=== PATIENT | male | born 1970 | race Caucasian/White ===

== ENCOUNTER 2017-10-07 02:35 | Emergency (ER) ==
[2017-10-07 02:51] VITALS: BP 141/96; TEMP 98.9; BMI 27.9
[2017-10-07] MEDS ORDERED: TORADOL IM STA (02:53)
--- NOTE | 2017-10-07 02:56 | ED.PDOC ---
General ED Provider: Dr. 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 Time Seen by Physician: 02:54 Mode of Arrival: Walk-In Information Source: Patient Nursing and Triage Documentation Reviewed and Agree: Yes Musculoskeletal Complaint Exam - Back Pain Complaint/Exam Mechanism of Injury: Reports: Trauma Symptoms Are: Still present Timing: Constant Episodes Lasting: Seconds Initial Severity: Moderate Current Severity: Moderate Location: Reports: Discrete Character: Reports: Aching, Throbbing Aggravating: Reports: Movements Alleviating: Reports: None Associated Signs and Symptoms: Denies: Swelling, Redness, Bruising, Fever, Weakness, Numbness, Tingling, Abdominal pain, Flank pain, Bladder incontinence, Bowel incontinence, Weight loss, Pain with weight bearing TAD Risk Factors: Reports: None AAA Risk Factors: Reports: None Cauda Equina Risk Factors: Reports: None Epidural Abcess Risk Factors: Reports: None Related Surgical History: Reports: None Focal Tenderness: Yes Paraspinal Muscle Tenderness: Yes Paraspinal Muscle Spasm: Yes Scoliosis: No Lordosis: No Kyphosis: No SLR Test: Right Positive, Left Negative Focal Weakness: Present: None Focal Sensory Loss: Present: None Gait: Present: Normal Differential Diagnoses: Fracture, Herniated Disk, Strain, Sprain Review of Systems - Review Of Systems Constitutional: Reports: No symptoms Eyes: Reports: No symptoms Ears, Nose, Mouth, Throat: Reports: No symptoms Respiratory: Reports: No symptoms Cardiac: Reports: No symptoms GI: Reports: No symptoms : Reports: No symptoms Musculoskeletal: Reports: Back pain, Joint pain Skin: Reports: No symptoms Neurological: Reports: No symptoms Endocrine: Reports: No symptoms Hematologic/Lymphatic: Reports: No symptoms All Other Systems: Reviewed and Negative Past Medical History - Past Medical History Previously Healthy: Yes Endocrine: Reports: None Cardiovascular: Reports: None Respiratory: Reports: None Hematological: Reports: None Gastrointestinal: Reports: None Genitourinary: Reports: None Neuro/Psych: Reports: None Musculoskeletal: Reports: None Cancer: Reports: None - Surgical History General Surgical History: Reports: None - Family History Family History: Reports: None - Social History Smoking Status: Current every day smoker, Heavy tobacco smoker Smoking Cessation Counseling Time: > 3 min - 10 min Hx Substance Use: Yes (IN THE PAST) Alcohol Screening: None - Immunizations Tetanus Shot up to Date: Yes Physical Exam - Physical Exam Appearance: Well-appearing Eyes: BAILEY, EOMI, Conjunctiva clear ENT: Ears normal, Nose normal, Oropharynx normal Respiratory: Airway patent, Breath sounds clear, Breath sounds equal, Respirations nonlabored Cardiovascular: RRR, Pulses normal, No rub, No murmur GI/: Soft, Nontender, No masses, Bowel sounds normal, No Organomegaly Musculoskeletal: Normal strength, ROM intact, No edema, No calf tenderness Skin: Warm, Dry, Normal color Neurological: Sensation intact, Motor intact, Reflexes intact, Cranial nerves intact, Alert, Oriented Psychiatric: Affect appropriate, Mood appropriate Critical Care Note - Critical Care Note Total Time (mins): 0 Course - Course Orders, Labs, Meds: Orders Category Date Time Status Ketorolac Tromethamine [Toradol] MEDS 10/07/17 02:53 Stat 30 mg IM ONCE STA CT LUMBAR SPINE W/O CONTRAST Stat RADS 10/07/17 02:53 Ordered Vital Signs: Temp Pulse Resp BP Pulse Ox 10/07/17 02:37 98.9 F 98 H 20 141/96 H 98 Departure - Departure Time of Disposition: 02:57 Disposition: HOME SELF-CARE Discharge Problem: Backache Instructions: Low Back Strain (GEN) Condition: Good Pt referred to PMD for follow-up: Yes Additional Instructions: Rest Hot pack F/u RHC in 3-4 days Prescriptions: Hydrocodone/Acetaminophen [[place] 5-325 Tablet] 1 tab PO TID PRN #12 tablet PRN Reason: PAIN Prednisone 10 mg PO BIDWM #14 tablet Allergies/Adverse Reactions: Allergies No Known Drug Allergies Adverse Reaction (Verified 10/07/17 02:47) Home Medications: Ambulatory Orders Hydrocodone/Acetaminophen [[place] 5-325 Tablet] 1 tab PO TID PRN #12 tablet 10/07 Prednisone 10 mg PO BIDWM #14 tablet 10/07/17 Disposition Discussed With: Patient
--- NOTE | 2017-10-07 03:33 | CT ---
Exam: CT lumbar spine without contrast HISTORY: Lower back pain TECHNIQUE: CT of the lumbar spine with multiplanar reformations. FINDINGS: Vertebral body height is maintained. Anterior degenerative listhesis of L4 measuring less than 4 mm. Normal alignment otherwise. No fracture lines or suspicious bony lesions. No immediate paravertebral soft tissue abnormalities. The sacrum is intact. L1-L2: Normal L2-L3: Normal L3-L4: Minor generalized disc bulge with mild anterior sac indentation. Mild bilateral foraminal na rrowing. Early facet arthropathy changes. L4-L5: Anterior degenerative listhesis of L4 measuring less than 4 mm. Generalized disc bulge with mild anterior sac indentation. Facet arthropathy present bilaterally. There is moderate to severe r ight and severe left foraminal narrowing. L5 S1: Generalized disc bulge with mild anterior sac indentation. Facet arthropathy changes with mi ld right and moderate left foraminal narrowing. Impression: 1. No acute abnormalities of the lumbar spine 2. Degenerative changes as described. There is a moderate to severe bilateral foraminal narrowing a t L4-5.
== END 2017-10-07 03:42 | disposition home or self-care (01) ==
LOC: ED 02:35
DX: M54.5 Low back pain (principal); F17.210 Nicotine dependence, cigarettes, uncomplicated
CPT/HCPCS: 96372; 99282